=== PATIENT | female | born 1960 | race Caucasian/White ===

== ENCOUNTER 2016-11-15 17:14 | Day surgery (SDC) | payer BC ==
--- NOTE | 2016-11-09 11:11 | HP ---
CC: Dr. Simmons; Dr. Love* ADMITTING HISTORY AND PHYSICAL: DATE OF ADMISSION: 11/17/16 ADMITTING DIAGNOSES: 1. Right renal calculus. 2. Additional calculus, right renal pelvis with caliectasis. PLANNED PROCEDURE: Right ureteral stent insertion, possible right ureteroscopy , and laser lithotripsy (possibly to be followed in near future by shockwave lithotripsy). SURGEON: Dr. Love ADMITTING HISTORY AND PHYSICAL: Yanira Woods is a 56-year-old diabetic with a history of recurrent renal calculi. She was evaluated and noted to have a 7-mm calculus in the right renal pelvis and an additional 8-mm calculus in the upper pole of the right kidney with right caliectasis. PAST MEDICAL HISTORY: Significant for: 1. Diabetes mellitus. 2. Nicotine dependence. 3. COPD. 4. Hypertension. 5. History of asthma. 6. Hyperlipidemia. 7. Anxiety disorder. 8. History of pituitary adenoma. PAST SURGICAL HISTORY: Significant for transsphenoidal hypophysectomy for a pituitary tumor in 2013 and left ureteroscopy, laser and stent in 2010. MEDICATIONS ON ADMISSION: 1. Amlodipine 5 mg a day. 2. Ziac 5 mg a day. 3. Metformin 500 b.i.d. 4. Desmopressin nasal spray daily. ALLERGIES: No known drug allergies. PHYSICAL EXAMINATION GENERAL: Revealed a pleasant middle-aged lady. VITAL SIGNS: Blood pressure 132/84, pulse 71 per minute, oxygen saturation 96% on room air. LUNGS: Clear bilaterally. CARDIOVASCULAR: Regular rate and rhythm. S1, S2. ABDOMEN: Soft with mild right flank tenderness. IMPRESSION: A 56-year-old diabetic with a calculus in the right renal pelvis and an additional calculus in the upper pole of the right kidney. PLAN: Planned procedure is right stent insertion, possible ureteroscopy, and laser (possibly to be followed in near future by shockwave lithotripsy). [id number]/[facility] #: [id number] [facility]
[~2016-11-15 17:14] MED LIST: Buffered Lidocaine 0.9% SYRIN* 5 ML/SYR SYRINGE ONE; Iohexol 180 (CONTRAST) 10 ML SDV IV ONE
[2016-11-15] MEDS ORDERED: cefTRIAXone(*) 2 GM ADDV.VIAL IVPB ONE (17:28)
[2016-11-15] MEDS ORDERED: Midazolam* 1 MG/ML 2 ML VIAL (2 MG) ONE ×2 (18:15→18:30)
[2016-11-15] MEDS ORDERED: fentaNYL* 50 MCG/ML 2 ML VIAL (100 MCG VIAL) ONE (18:15)
[2016-11-15] MEDS ORDERED: Propofol* 10 MG/ML 20 ML BTL IV PUSH ONE (18:41)
[2016-11-15 18:52] LABS: Hematocrit 42 % (35-47); Hemoglobin 13.8 g/dl (12.0-16.0); Mean Corpuscular HGB Conc 33 g/dl (31-36); Mean Corpuscular Hemoglobin 31 pg (27-31); Mean Corpuscular Volume 92 fL (80-97); Mean Platelet Volume 8 um3 (7.4-10.4); Red Blood Count 4.52 10^6/ul (4.0-5.4); Red Cell Distribution Width 13 % (10.5-15); White Blood Count 11.5 10^3/ul (3.5-10.8)
[2016-11-15 19:08] LABS: BUN/Creatinine Ratio 20.8 (8-20); Calcium 9.6 mg/dL (8.6-10.3); EGFR African American 68.5 (>60); EGFR Non-African American 53.2 (>60)
[2016-11-15 20:09] VITALS: BP 150/69
--- NOTE | 2016-11-15 21:56 | RAD ---
INDICATION: RIGHT ureteral stent insertion. COMPARISON: February 06, 2014 CT. TECHNIQUE: Less than one hour fluoroscopy provided. FINDINGS: Spot image documents the proximal segment of a RIGHT ureteral stent at level of the renal pelvis. Negative for significant caliectasis. IMPRESSION: Procedural fluoroscopy. CPT II Codes: 6045F
--- NOTE | 2016-11-16 14:36 | OP ---
CC: Dr. Awais Simmons * DATE OF OPERATION: 11/15/16 - [facility] DATE OF : 56 SURGEON: Corwin Pritchett MD ANESTHESIOLOGIST: Dr. Mancera. ANESTHESIA: IV sedation with MAC. PRE-OP DIAGNOSES: 1. Right renal calculus. 2. Urinary tract infection. 3. Right hydronephrosis. POST-OP DIAGNOSES: 1. Right renal calculus. 2. Urinary tract infection. 3. Right hydronephrosis. OPERATIVE PROCEDURE: 1. Cystoscopy. 2. Right retrograde pyelography and placement of right ureteral stent (6-Sammarinese ). INDICATION FOR PROCEDURE: Ms. Woods is a 56-year-old white female who is a known stone former and is a diabetic, who is known to have right renal calculi. She presented to the office today with symptoms of urinary tract infection associated with right flank pain. She did not have any fever or chills. Renal ultrasound showed moderate right hydronephrosis and a suspected proximal right ureteral calculus. Because of the above history and finding, the patient is admitted for urgent right ureteral stent placement. After obtaining urine culture, patient was given intravenous Rocephin and gentamicin preoperatively. PATHOLOGY AT CYSTOSCOPY: There were diffuse changes of acute cystitis involving the whole bladder wall. The ureteral orifices looked normal. There was single orifice on each side. There were no papillary bladder lesions seen. The renal pelvis was decompressed before injecting contrast. There was only slight fullness of the renal pelvis and the collecting system when the retrograde was performed. The urine from the right kidney did not look grossly infected. Radiopaque calculus was noted within the upper pole calyx of the right kidney. DESCRIPTION OF PROCEDURE: With the patient in the dorsal lithotomy position and under intravenous sedation and Anesthesia monitoring, cystoscopy was performed. The bladder was inspected and the above changes of acute cystitis were noted. A flexible tip guidewire was then introduced into the right orifice and passed in the area of the renal pelvis. An open-ended catheter was then fed up over the guidewire and positioned in the renal pelvis. The collecting system was decompressed. When the hydronephrotic drip slowed down, 2 cc of contrast were injected delineating the collecting system. The guidewire was then reintroduced. A size 6-Sammarinese stent was then placed with the proximal end coiling in the renal pelvis and the distal end coiling inside the bladder. There was good drainage of contrast from the kidney. The patient tolerated the procedure well and left the operating room in good condition. The plan is to observe the patient in the PACU for possible sepsis. If she does fine, plan to discharge her home on Bactrim. She will need definitive treatment of the stone at a later date. [id number]/[facility] #: [id number] MTDD
== END 2016-11-15 20:10 | disposition home or self-care (01) ==
LOC: OR 17:14
PROVIDERS: ATTEND Urology
DX: N13.6 Pyonephrosis (principal); J44.9 Chronic obstructive pulmonary disease, unspecified; F17.210 Nicotine dependence, cigarettes, uncomplicated; E11.9 Type 2 diabetes mellitus without complications; Z79.84 Long term (current) use of oral hypoglycemic drugs
CPT/HCPCS: 36415; 74420; 80048; 85025; C1876; J0696; J1580; J2250; J2704; J3010

== ENCOUNTER 2016-11-22 13:08 | Day surgery (SDC) | payer BC ==
[~2016-11-22 13:08] MED LIST changes: +Buffered Lidocaine 0.9% SYRIN* 5 ML/SYR SYRINGE INTRADERM ONE; -Buffered Lidocaine 0.9% SYRIN* 5 ML/SYR SYRINGE ONE; +Dexamethasone IV* 4 MG/ML 1 ML (4 MG) IV SLOW PU ONE; +Famotidine IV* 10 MG/ML 2 ML (20 mg) IV ONE; -Iohexol 180 (CONTRAST) 10 ML SDV IV ONE
[2016-11-22] MEDS ORDERED: cefTRIAXone(*) 2 GM ADDV.VIAL IVPB ONE (13:39)
[2016-11-22] MEDS ORDERED: Famotidine IV* 10 MG/ML 2 ML (20 mg) ONE (13:39)
[2016-11-22] MEDS ORDERED: Dexamethasone IV* 4 MG/ML 1 ML (4 MG) ONE (13:39)
[2016-11-22] MEDS ORDERED: Buffered Lidocaine 0.9% SYRIN* 5 ML/SYR SYRINGE ONE (13:54)
--- NOTE | 2016-11-22 14:08 | RAD ---
INDICATION: Kidney stones COMPARISON: November 18, 2016 TECHNIQUE: A single view of the abdomen is submitted. FINDINGS: Bones: There are no acute bony findings. Soft tissues: The soft tissues appear normal. The psoas margins are sharp. Bowel gas pattern: Normal Calcifications: There is right-sided nephrolithiasis. Other: There is a right ureteral stent unchanged in position. IMPRESSION: RIGHT-SIDED NEPHROLITHIASIS AND RIGHT URETERAL STENT.
[2016-11-22] MEDS ORDERED: Midazolam* 1 MG/ML 5 ML VIAL (5 MG) ONE (16:20)
[2016-11-22] MEDS ORDERED: fentaNYL* 50 MCG/ML 5 ML VIAL (250 MCG VIAL) ONE (16:46)
[2016-11-22] MEDS ORDERED: Propofol* 10 MG/ML 20 ML BTL IV PUSH ONE (16:47)
[2016-11-22] MEDS ORDERED: Lidocaine 2% PF * 5 ML VIAL ONE (16:47)
[2016-11-22] MEDS ORDERED: Ondansetron INJ* 2 MG/ML VIAL ONE (16:47)
[2016-11-22] MEDS ORDERED: Desflurane* 240 ML INH ONE (16:55)
[2016-11-22] MEDS ORDERED: Furosemide IV* 10 MG/ML 2 ML VIAL (20 MG) ONE (17:05)
[2016-11-22] MEDS ORDERED: oxyCODONE/Acetamin 5/325 MG* TAB PO PRN (17:52)
[2016-11-22] MEDS ORDERED: Ondansetron INJ* 2 MG/ML VIAL IV PRN (17:52)
[2016-11-22] MEDS ORDERED: fentaNYL* 50 MCG/ML 2 ML VIAL (100 MCG VIAL) IV PRN (17:52)
[2016-11-22] MEDS ORDERED: Levalbuterol 0.63MG/3ML NEB INH PRN (17:52)
[2016-11-22 18:40] VITALS: BP 91/60
--- NOTE | 2016-11-22 18:55 | RAD ---
INDICATION: Right-sided nephrolithiasis COMPARISON: [facility] November 22, 2016 1328 hours TECHNIQUE: A single view of the abdomen is submitted. FINDINGS: Bones: There are no acute bony findings. Soft tissues: The soft tissues appear normal. The psoas margins are sharp. Bowel gas pattern: Normal Calcifications: Right-sided nephrolithiasis, unchanged. Other: Right ureteral stent, unchanged IMPRESSION: RIGHT-SIDED NEPHROLITHIASIS.
--- NOTE | 2016-11-23 16:08 | OP ---
OPERATIVE SUMMARY: DATE OF OPERATION: 11/22/16 DATE OF : 56 SURGEON: Yury Love MD ANESTHESIOLOGIST: Dr. Simeon. ANESTHESIA: General. PRE-OP DIAGNOSIS: Right renal calculus. POST-OP DIAGNOSIS: Right renal calculus. OPERATIVE PROCEDURE: Shockwave lithotripsy of right renal calculus. COMPLICATIONS: None. POSTOPERATIVE CONDITION: Stable. INDICATIONS: Yanira Woods is a 56-year-old lady who had undergone urgent right stent insertion. She is now being brought in for lithotripsy. DESCRIPTION OF PROCEDURE: After induction of general anesthesia, the patient was placed on the lith otripsy table in supine position. The calculus which was in the mid pole area of the right kidney w as localized using fluoroscopy. Shockwave lithotripsy was commenced at a rate of 90 shocks per pearl te. After the initial 350 shocks, there was pause in lithotripsy for several minutes in an effort t o minimize any potential trauma to the kidney. Lithotripsy was then resumed and a total of 2100 teo cks were administered. The patient tolerated the procedure satisfactorily and was transferred back to the recovery area in stable condition. [id number]/[facility] #: [id number]
== END 2016-11-22 18:35 | disposition home or self-care (01) ==
LOC: OR 13:08
PROVIDERS: ATTEND Urology
DX: N20.0 Calculus of kidney (principal); I10 Essential (primary) hypertension; E11.9 Type 2 diabetes mellitus without complications; J45.909 Unspecified asthma, uncomplicated; E23.0 Hypopituitarism; E66.9 Obesity, unspecified
CPT/HCPCS: 74000; A9270-GY; J0696; J1100; J1580; J1940; J2250; J2405; J2704; J3010

== ENCOUNTER 2017-11-10 13:54 | Day surgery (SDC) | payer BC ==
[~2017-11-10 13:54] MED LIST changes: -Buffered Lidocaine 0.9% SYRIN* 5 ML/SYR SYRINGE INTRADERM ONE; -Dexamethasone IV* 4 MG/ML 1 ML (4 MG) IV SLOW PU ONE; -Famotidine IV* 10 MG/ML 2 ML (20 mg) IV ONE; +Gentamicin ADULT (*) 180 MG in NS 0.9% 100 ML* 100 ML IVPB ONE
[2017-11-10] MEDS ORDERED: cefTRIAXone(*) 2 GM ADDV.VIAL IVPB ONE (14:16)
--- NOTE | 2017-11-10 15:38 | HP ---
CC: Dr. Simmons; Dr. Love STAT HISTORY AND PHYSICAL: DATE OF ADMISSION: 11/10/17 ADMITTING DIAGNOSES: 1. Calculus, right ureteropelvic junction. 2. Right renal calculus. 3. Urinary tract infection. PLANNED PROCEDURE: Right stent insertion (to be followed in the near future by lithotripsy after treatment of infection). SURGEON: Dr. Love. HISTORY OF PRESENT ILLNESS: Yanira Woods is a 57-year-old diabetic with history of recurrent renal calculus. She was evaluated and noted to have a calculus in the right ureteropelvic junction with an additional calculus in the right kidney and an associated urinary tract infection. Preliminary urine culture has shown E. coli but sensitivities are pending at the time of this dictation. Because of the associated urinary tract infection and the calculus at the ureteropelvic junction, she is now being brought in for urgent right stent insertion to be followed by lithotripsy after treatment of UTI. PAST MEDICAL HISTORY: Significant for: 1. COPD. 2. Diabetes mellitus. 3. Hypertension. 4. Hyperlipidemia. 5. Anxiety disorder. 6. History of pituitary adenoma. 7. Nicotine dependence. MEDICATIONS ON ADMISSION: 1. Amlodipine 5 mg a day. 2. Ziac 5 mg a day. 3. Metformin 500 mg twice a day. 4. Melatonin 5 mg a day. 5. Actos one tablet daily. 6. Desmopressin spray one spray in each nostril daily. ALLERGIES: No known drug allergies. REVIEW OF SYSTEMS: She denies any chest pain or shortness of breath. PHYSICAL EXAMINATION GENERAL: Reveals a pleasant, middle-aged lady. VITAL SIGNS: Blood pressure is 122/80, pulse 66 per minute and regular, oxygen saturation 99% on room air, temperature 96.9. LUNGS: Clear bilaterally. CARDIOVASCULAR: Regular rate and rhythm. S1, S2. ABDOMEN: Soft with mild right flank tenderness. IMPRESSION: A 57-year-old diabetic with calculus of the right ureteropelvic junction and an additional calculus in the right kidney and associated urinary tract infection. PLAN/RECOMMENDATIONS: Plan is for urgent right stent insertion to be followed in the near future by shockwave lithotripsy. [id number]/[facility] #: [id number] MTDD
[2017-11-10] MEDS ORDERED: Buffered Lidocaine 0.9% SYRIN* 5 ML/SYR SYRINGE INTRADERM ONE (15:39)
--- NOTE | 2017-11-10 15:46 | HP ---
CC: Dr. Simmons * STAT HISTORY AND PHYSICAL: DATE OF ADMISSION: 11/10/17 ADMITTING DIAGNOSES: 1. Calculus, right ureteropelvic junction. 2. Right renal calculus. 3. Urinary tract infection. PLANNED PROCEDURE: Right stent insertion (to be followed in the near future by lithotripsy after treatment of infection). SURGEON: Dr. Love. HISTORY OF PRESENT ILLNESS: Yanira Woods is a 57-year-old diabetic with a history of recurrent renal calculi. She was evaluated and noted to have a calculus in the right ureteropelvic junction with an additional calculus in the right kidney and an associated urinary tract infection. Preliminary urine culture has shown E. coli but sensitivities are pending at the time of this dictation. Because of the associated urinary tract infection and the calculus at the ureteropelvic junction, she is now being brought in for urgent right stent insertion to be followed by lithotripsy after treatment of UTI. PAST MEDICAL HISTORY: Significant for: 1. COPD. 2. Diabetes mellitus. 3. Hypertension. 4. Hyperlipidemia. 5. Anxiety disorder. 6. History of pituitary adenoma. 7. Nicotine dependence. MEDICATIONS ON ADMISSION: 1. Amlodipine 5 mg a day. 2. Ziac 5 mg a day. 3. Metformin 500 mg twice a day. 4. Melatonin 5 mg a day. 5. Actos 1 tablet daily. 6. Desmopressin spray, 1 spray in each nostril daily. ALLERGIES: No known drug allergies. REVIEW OF SYSTEMS: She denies any chest pain or shortness of breath. PHYSICAL EXAMINATION GENERAL: Reveals a pleasant, middle-aged lady. VITAL SIGNS: Blood pressure is 122/80, pulse 66 per minute and regular, oxygen saturation 99% on room air, temperature 96.9. LUNGS: Clear bilaterally. CARDIOVASCULAR: Regular rate and rhythm. S1, S2. ABDOMEN: Soft with mild right flank tenderness. IMPRESSION: A 57-year-old diabetic with a calculus at the right ureteropelvic junction and an additional calculus in the right kidney and associated urinary tract infection. PLAN: Plan is for urgent right stent insertion to be followed in the near future by shock wave lithotripsy. [id number]/[facility] #: [id number] MTDD
[2017-11-10] MEDS ORDERED: Midazolam* 1 MG/ML 5 ML VIAL (5 MG) ONE (15:52)
[2017-11-10] MEDS ORDERED: Propofol* 10 MG/ML 20 ML BTL IV PUSH ONE (15:52)
[2017-11-10] MEDS ORDERED: Lidocaine 2% PF * 5 ML VIAL ONE (15:52)
[2017-11-10] MEDS ORDERED: fentaNYL* 50 MCG/ML 2 ML VIAL (100 MCG VIAL) ONE (15:52)
[2017-11-10] MEDS ORDERED: Ondansetron INJ* 2 MG/ML VIAL ONE (15:52)
[2017-11-10] MEDS ORDERED: fentaNYL* 50 MCG/ML 2 ML VIAL (100 MCG VIAL) IV PRN (17:23)
[2017-11-10] MEDS ORDERED: Naloxone* 0.4 MG/ML 1 ML VIAL IV PRN (17:23)
[2017-11-10] MEDS ORDERED: Ondansetron INJ* 2 MG/ML VIAL IV PRN (17:23)
[2017-11-10] MEDS ORDERED: Ciprofloxacin TAB* 500 MG PO ONE (18:00)
[2017-11-10 19:02] VITALS: BP 131/78
--- NOTE | 2017-11-10 19:14 | RAD ---
Indication: Post ureteral stent placement. Comparison: November 10, 2017 intraoperative fluoroscopy. November 09, 2017 CT. Technique: Supine view of the abdomen. REPORT AND IMPRESSION: #. Adjacent stones at the level of the RIGHT renal pelvis measuring up to 0.4 cm maximum dimension. No calcifications along the course of the ureteral portion of the ureteral stent. Unremarkable soft tissue contours.
--- NOTE | 2017-11-10 19:25 | RAD ---
INDICATION: RIGHT side urolithiasis. Retrograde pyelogram and stent placement. Technique: 3 seconds of?fluoroscopy?was provided?for the physician proceduralist. REPORT: Spot images document RIGHT side retrograde pyelogram with mild calyceal blunting and RIGHT ureteral stent placement. IMPRESSION: Procedural control films. CPT II Codes: G9500
--- NOTE | 2017-11-11 03:12 | OP ---
CC: Dr. Simmons * DATE OF OPERATION: 11/10/17 - [facility] DATE OF : 56 SURGEON: Yury Love MD ANESTHESIOLOGIST: Dr. Mendez. ANESTHESIA: Intravenous sedation. PRE-OP DIAGNOSES: 1. Right renal calculi. 2. Urinary tract infection. 3. Hematuria. POST-OP DIAGNOSES: 1. Right renal calculi. 2. Urinary tract infection. 3. Hematuria. OPERATIVE PROCEDURE: Cystoscopy, right retrograde pyelogram, right stent insertion. COMPLICATIONS: None. POSTOPERATIVE CONDITION: Stable. STENT USED: 6-Stateless stent, right ureter. INDICATIONS: Yanira Woods is a 57-year-old diabetic with a history of recurrent renal calculi. She was recently evaluated for hematuria and flank pain and noted to have 2 calculi, one of them at the right ureteropelvic junction with an associated urinary tract infection. She is being brought in for urgent right stent insertion to be followed at some point in the near future by lithotripsy. OPERATIVE FINDINGS: 1. Urethral stenosis. 2. Dilated right renal pelvis (possible partial ureteropelvic junction obstruction) with right renal calculi. DESCRIPTION OF PROCEDURE: After induction of intravenous sedation, the patient was placed in dorsal lithotomy position. Sequential compression devices were in place and functioning. Initial cystoscopy revealed urethral stenosis. There was some cloudy urine noted in the bladder and some areas of hyperemic changes in the bladder floyd likely related to cystitis. Right retrograde pyelogram revealed a dilated right renal pelvis with mild narrowing of the ureteropelvic junction suggesting a possible partial UPJ obstruction. A guidewire was introduced into the proximal collecting system and a 6-Stateless stent was introduced and positioned under fluoroscopy with good proximal and distal positioning obtained. The bladder was emptied. The patient tolerated the procedure satisfactorily and was transferred back to the recovery area in stable condition. [id number]/[facility] #: [id number] MTDD
== END 2017-11-10 19:05 | disposition home or self-care (01) ==
LOC: OR 13:54
PROVIDERS: ATTEND Urology
DX: N13.6 Pyonephrosis (principal); Z87.442 Personal history of urinary calculi; E11.9 Type 2 diabetes mellitus without complications; Z79.84 Long term (current) use of oral hypoglycemic drugs; J44.9 Chronic obstructive pulmonary disease, unspecified; I10 Essential (primary) hypertension; E78.5 Hyperlipidemia, unspecified; F41.9 Anxiety disorder, unspecified; Z72.0 Tobacco use; K21.9 Gastro-esophageal reflux disease without esophagitis; K76.0 Fatty (change of) liver, not elsewhere classified
CPT/HCPCS: 74018; 74420; A9270-GY; C1876; J0696; J1580; J2250; J2405; J2704; J3010

== ENCOUNTER → 2017-11-21 09:33 | Day surgery (SDC) | payer BC ==
[~2017-11-21 09:33] MED LIST changes: +Buffered Lidocaine 0.9% SYRIN* 5 ML/SYR SYRINGE INTRADERM ONE; +Dexamethasone IV* 4 MG/ML 1 ML (4 MG) ONE; +EPHEDrine (Pressors)* 50 MG/ML VIAL ONE; +Famotidine IV* 10 MG/ML 2 ML (20 mg) IV ONE; +Famotidine IV* 10 MG/ML 2 ML (20 mg) ONE; +Furosemide IV* 10 MG/ML 2 ML VIAL (20 MG) ONE; +Gentamicin ADULT (*) 160 MG in NS 0.9% 100 ML* 100 ML IVPB ONE; -Gentamicin ADULT (*) 180 MG in NS 0.9% 100 ML* 100 ML IVPB ONE; +Midazolam* 1 MG/ML 5 ML VIAL (5 MG) ONE; +Ondansetron INJ* 2 MG/ML VIAL ONE; +Phenylephrine IV* 40 MCG/ML 10 ML SYRINGE ONE; +cefTRIAXone(*) 2 GM ADDV.VIAL IVPB ONE; +fentaNYL* 50 MCG/ML 2 ML VIAL (100 MCG VIAL) ONE
--- NOTE | 2017-11-21 10:55 | RAD ---
HISTORY: preop eswl right calculi COMPARISONS: November 10, 2017 VIEWS: Frontal views of the abdomen. FINDINGS: BOWEL: There is a nonspecific bowel gas pattern, with nondilated small bowel gas noted. CALCULI: Again noted are calculi overlying the right renal parenchyma shadow measuring up to 0.7 cm. A right ureteral stent is noted. BONES AND SOFT TISSUES: Degenerative changes are noted. OTHER FINDINGS: The lung bases are clear. There is no subphrenic gas. IMPRESSION: RIGHT NEPHROLITHIASIS WITH A RIGHT URETERAL STENT
[2017-11-21 13:09] VITALS: BP 105/54
--- NOTE | 2017-11-22 06:28 | OP ---
CC: Dr. Awais Simmons * DATE OF OPERATION: 11/21/17 - [facility] DATE OF : 56 SURGEON: Yury Love MD ANESTHESIOLOGIST: Dr. Graves. ANESTHESIA: General. PRE-OP DIAGNOSIS: Right renal calculi. POST-OP DIAGNOSIS: Right renal calculi. OPERATIVE PROCEDURE: Shockwave lithotripsy of right renal calculi. COMPLICATIONS: None. POSTOPERATIVE CONDITION: Stable. INDICATIONS: Yanira Woods is a 57-year-old lady who had undergone urgent right stent insertion for a calculus located in the right renal pelvis with associated urinary tract infection. In addition, she has a second calculus in the right kidney and she is now being brought in for lithotripsy. DESCRIPTION OF PROCEDURE: After induction of general anesthesia, patient was placed on the lithotripsy table in supine position. There were two calculi in the mid pole area of the right kidney, together in a cluster. These were localized using shock wave lithotripsy under fluoroscopic guidance at a rate of 60 shocks per minute. After the initial 300 shocks, there was a pause in lithotripsy for several minutes and I have to minimize any potential trauma to the kidney. Lithotripsy was then resumed and a total of 1600 shocks were administered. The patient tolerated the procedure satisfactorily and was transferred back to recovery area in stable condition. [id number]/[facility] #: [id number] MTDD
== END | disposition home or self-care (01) ==
LOC: OR 09:33
PROVIDERS: ATTEND Urology
DX: N13.6 Pyonephrosis (principal); E11.9 Type 2 diabetes mellitus without complications; Z79.84 Long term (current) use of oral hypoglycemic drugs; I10 Essential (primary) hypertension; E78.5 Hyperlipidemia, unspecified; F41.9 Anxiety disorder, unspecified
CPT/HCPCS: 74018; J0696; J1100; J1580; J1940; J2250; J2405; J3010